=== PATIENT | female | born 1980 | race Caucasian/White ===

== ENCOUNTER 2024-05-26 22:30 | Emergency (ER) | payer OTHER ==
[~2024-05-26] VITALS: Ht 165.1 cm; Wt 130.3 kg
[~2024-05-26 22:30] MED LIST: AMOXICILLIN500 MG OR; HYDROCHLOROT12.5 MG PO; LISINOPRIL20 MG PO; NAPROSYN500 MG PO; PRENATA5 OR; SIMVASTATIN20 MG PO
[2024-05-26 22:51] VITALS: BP 200/119
[2024-05-26] MEDS ORDERED: hydrALAZINE HCL 25 MG/TAB PO ONE (22:55)
[2024-05-26] MEDS ORDERED: IBUPROFEN 800 MG/TAB PO ONE (22:55)
[2024-05-26 23:00] VITALS: BP 199/108
[2024-05-26 23:30] VITALS: BP 175/112
[2024-05-27] VITALS: BP 176/102
[2024-05-27] MEDS ORDERED: LISINOP/HCTZ1 TA1 PO (00:04)
[2024-05-27] MEDS ORDERED: IBUPROFEN600 MG PO (00:04)
[2024-05-27 00:07] VITALS: BP 176/102
== END 2024-05-27 00:14 | disposition home or self-care (01) | DRG 556 ==
LOC: ED 22:30
DX: M25.531 Pain in right wrist (principal); I16.0 Hypertensive urgency; I10 Essential (primary) hypertension